=== PATIENT | female | born 1975 | race Caucasian/White ===

== ENCOUNTER 2016-12-24 21:21 | Emergency (ER) | payer OTHER ==
[~2016-12-24 21:21] MED LIST: ALBUTEROL0.09 MG/Ac INH; DUONEB3 ML NEB; FAMOTIDINE10 MG PO; LEVAQUIN750 MG PO; MEDDP PO; PROAIR HFA0.09 MG/A1 INH; SINGULAIR10 MG PO; [UNRECOGNIZED DRUG - OTHER]
[2016-12-24 23:02] LABS: BASOPHIL % 0.3 % (0-2); PLATELET COUNT 297 x10^3mcL (130-400)
[2016-12-24 23:04] LABS: RED CELL DISTRIBUTION WIDTH 16.3 % (11.5-14.5)
[2016-12-24 23:20] LABS: CALCIUM 8.1 mg/dL (8.5-10.1); CARBON DIOXIDE 30.2 mmol/L (21-32); CHLORIDE SERUM 99 mmol/L (98-107); CREATININE SERUM 0.7 mg/dL (0.6-1.0); GFR1 > 60 mL/min; GLUCOSE SERUM 90 mg/dL (74-106); POTASSIUM SERUM 3.5 mmol/L (3.5-5.1); SODIUM SERUM 135 mmol/L (136-145)
[2016-12-24 23:21] LABS: ALBUMIN 3.5 g/dL (3.4-5.0); ALKALINE PHOSPHATASE 100 U/L (46-116); ALT/SGPT 21 U/L (14-59); AMYLASE 28 U/L (25-115); AST/SGOT 18 U/L (15-37); BILIRUBIN TOTAL 0.4 mg/dL (0.20-1.00); LIPASE 96 IU/L (73-393); TOTAL PROTEIN, SERUM 7.2 g/dL (6.4-8.2)
[2016-12-25 00:54] VITALS: BP 146/78
== END 2016-12-25 00:54 | disposition home or self-care (01) ==
LOC: ED 21:21
PROVIDERS: Emergency Medicine
DX: R19.7 Diarrhea, unspecified (principal); R51 Headache; R11.0 Nausea; M79.605 Pain in left leg; J45.909 Unspecified asthma, uncomplicated; E66.9 Obesity, unspecified
CPT/HCPCS: Q0162

== ENCOUNTER 2018-01-09 05:14 | Emergency (ER) | payer OTHER ==
[2018-01-09 06:57] VITALS: BP 158/94
== END 2018-01-09 06:57 | disposition home or self-care (01) ==
LOC: ED 05:14
DX: J45.909 Unspecified asthma, uncomplicated (principal); E66.9 Obesity, unspecified; G47.30 Sleep apnea, unspecified; F17.210 Nicotine dependence, cigarettes, uncomplicated
CPT/HCPCS: J2930; J7620; Q0092

== ENCOUNTER 2018-01-24 07:58 | Inpatient (IN) | payer OTHER ==
[~2018-01-24] VITALS: Ht 172.7 cm; Wt 181.2 kg
[2018-01-24 08:03] VITALS: Ht 172.7 cm; Wt 181.2 kg
[2018-01-24] MEDS ORDERED: VENTOLIN H0.09 MG/A1 INH (11:01)
[2018-01-24 11:16] LABS: BASOPHIL % 0.5 % (0-2); PLATELET COUNT 309 x10^3mcL (130-400)
[2018-01-24 11:17] LABS: RED CELL DISTRIBUTION WIDTH 16.9 % (11.5-14.5)
[2018-01-24 11:27] LABS: CARBON DIOXIDE 34.5 mmol/L (21-32); CHLORIDE SERUM 100 mmol/L (98-107); CREATININE SERUM 0.6 mg/dL (0.6-1.0); GFR1 > 60 mL/min; GLUCOSE SERUM 115 mg/dL (74-106); POTASSIUM SERUM 3.7 mmol/L (3.5-5.1); SODIUM SERUM 136 mmol/L (136-145)
[2018-01-24 11:33] LABS: ALBUMIN 3.1 g/dL (3.4-5.0); ALKALINE PHOSPHATASE 109 U/L (46-116); ALT/SGPT 19 U/L (14-59); AST/SGOT 10 U/L (15-37); BILIRUBIN TOTAL 0.24 mg/dL (0.20-1.00); CHOLESTEROL 139 mg/dL (<200); HDL CHOLESTEROL 74 mg/dL (40-60); PHOSPHOROUS 3.8 mg/dL (2.5-4.9)
[2018-01-24 11:34] LABS: rbc morphology (normal/abnorm) ABNORMAL (NORMAL)
[2018-01-24 12:06] VITALS: BP 153/86
[2018-01-24 12:54] LABS: FREE T4 1.03 ng/dL (0.76-1.46); FREE THYROXINE INDEX 2.7 ug/dL (1.4-4.5)
[2018-01-24 12:59] LABS: T3 TOTAL 1.22 ng/mL
[2018-01-24 13:53] VITALS: BP 133/73
[2018-01-24 15:00] LABS: TOTAL IRON BINDING CAPACITY 348 ug/dL (250-450)
[2018-01-24 15:16] LABS: IRON 20 ug/dL (50-170)
[2018-01-24 15:57] LABS: RED BLOOD CELLS 4.51 M/mm3 (4.10-5.10)
[2018-01-24 18:03] VITALS: BP 144/77
[2018-01-24 20:38] VITALS: BP 134/66
[2018-01-25 01:56] LABS: UA SPECIFIC GRAVITY 1.025 (1.005-1.035); microscopic required? YES; urine erythrocyte 1+ (NEGATIVE)
[2018-01-25 02:23] LABS: AMPHETAMINE QUAL UR POSITIVE (NEG <=1000)
[2018-01-25 05:26] VITALS: BP 132/70
[2018-01-25 06:51] LABS: CALCIUM 8.6 mg/dL (8.5-10.1); CARBON DIOXIDE 29.6 mmol/L (21-32); CHLORIDE SERUM 102 mmol/L (98-107); CREATININE SERUM 0.6 mg/dL (0.6-1.0); GFR1 > 60 mL/min; GLUCOSE SERUM 145 mg/dL (74-106); MAGNESIUM 1.8 mg/dL (1.8-2.4); POTASSIUM SERUM 3.5 mmol/L (3.5-5.1); SODIUM SERUM 138 mmol/L (136-145)
[2018-01-25 07:28] LABS: BASOPHIL % 0 % (0-2); PLATELET COUNT 330 x10^3mcL (130-400); RED CELL DISTRIBUTION WIDTH 16.8 % (11.5-14.5)
[2018-01-25 08:43] VITALS: BP 115/73
[2018-01-25 13:11] VITALS: BP 122/70
[2018-01-25 16:14] VITALS: BP 115/66
[2018-01-25 20:36] VITALS: BP 109/64
[2018-01-26 05:47] VITALS: BP 130/67
[2018-01-26 06:41] LABS: BASOPHIL % 0 % (0-2); PLATELET COUNT 322 x10^3mcL (130-400); RED CELL DISTRIBUTION WIDTH 17.2 % (11.5-14.5)
[2018-01-26] MEDS ORDERED: FER300 PO (07:14)
[2018-01-26] MEDS ORDERED: BACDS PO (07:15)
[2018-01-26] MEDS ORDERED: C500500 MG PO (07:15)
[2018-01-26] MEDS ORDERED: MEDDP PO (07:16)
[2018-01-26] MEDS ORDERED: CULTURELLE1 EACH PO (07:16)
[2018-01-26] MEDS ORDERED: SINGULAIR10 MG PO (07:17)
[2018-01-26 09:47] VITALS: BP 123/74
[2018-01-26 13:19] VITALS: BP 123/74
[2018-01-26] MEDS ORDERED: IPRATROPIUM BROM3 M2 HHN (14:53)
[2018-01-26] MEDS ORDERED: VENTOLIN H0.09 MG/A1 INH (14:53)
== END 2018-01-26 16:00 | disposition home or self-care (01) | DRG 133 ==
LOC: ED 07:58 → DU 11:47 → MU 11:47 → DU 13:14 → MU 01-25 10:03
PROVIDERS: Emergency Medicine; Family Medicine
DX: J96.01 Acute respiratory failure with hypoxia (principal); N17.0 Acute kidney failure with tubular necrosis; E44.0 Moderate protein-calorie malnutrition; Z68.44 Body mass index [BMI] 60.0-69.9, adult; J45.902 Unspecified asthma with status asthmaticus; E66.01 Morbid (severe) obesity due to excess calories; Z83.3 Family history of diabetes mellitus; Z82.49 Family history of ischemic heart disease and other diseases of the circulatory system; F17.210 Nicotine dependence, cigarettes, uncomplicated; D64.9 Anemia, unspecified; N39.0 Urinary tract infection, site not specified; G47.33 Obstructive sleep apnea (adult) (pediatric); R73.03 Prediabetes; F19.10 Other psychoactive substance abuse, uncomplicated
CPT/HCPCS: 83880; 84439; J0696; J1644; J2920; J2930; J7030; J7512; J7613; J7620; J7626; J7644; Q0092

== ENCOUNTER 2018-07-27 06:23 | Emergency (ER) | payer OTHER ==
[~2018-07-27] VITALS: Ht 172.7 cm; Wt 181.0 kg
[~2018-07-27 06:23] MED LIST changes: +BACDS PO; +C500500 MG PO; +CULTURELLE1 EACH PO; +FER300 PO; +IPRATROPIUM BROM3 M2 HHN; +VENTOLIN H0.09 MG/A1 INH
[2018-07-27 06:29] VITALS: BP 136/88; Ht 172.7 cm; Wt 181.0 kg
== END 2018-07-27 07:07 | disposition home or self-care (01) ==
LOC: ED 06:23
DX: T63.301A Toxic effect of unspecified spider venom, accidental (unintentional), initial encounter (principal); L08.9 Local infection of the skin and subcutaneous tissue, unspecified; F17.210 Nicotine dependence, cigarettes, uncomplicated; J45.909 Unspecified asthma, uncomplicated; E66.01 Morbid (severe) obesity due to excess calories; Z68.44 Body mass index [BMI] 60.0-69.9, adult; Z71.6 Tobacco abuse counseling; Z98.890 Other specified postprocedural states; Y92.89 Other specified places as the place of occurrence of the external cause
CPT/HCPCS: 82962; 99406

== ENCOUNTER 2019-03-26 00:14 | Inpatient (IN) | payer OTHER ==
[~2019-03-26] VITALS: Ht 170.2 cm; Wt 136.1 kg
[2019-03-26 00:21] VITALS: Ht 170.2 cm; Wt 136.1 kg
--- NOTE | 2019-03-26 01:10 | NUR ---
PT PRESENTS TO THE ED TODAY WITH C/C OF BUG BITE TO RIGHT UPPER ARM SINCE SUNDAY. PT REPORTS THAT SHE THINKS A SPIDER BIT HER, HOWEVER DID NOT SEE WHAT ACTUALLY BIT HER. PT NOTICED INCREASED SWELLING AND WARMTH TO AREA YESTERDAY. 1 LARGE 2.5 CM IN DIAMETER FLUID FILLED BULLA NOTED AND A 1 CM IN DIAMETER BULLA NOTED. PT IS AWAKE AND ALERT, RESP E/U, NAD NOTED. AWAITING MSE.
--- NOTE | 2019-03-26 02:08 | NUR ---
PT MEDICATED PER EMAR, PT REMAINS ON FULL CM IN VIEW OF NURSE'S STATION.
[2019-03-26 02:25] LABS: BASOPHIL % 0.3 % (0-2); PLATELET COUNT 373 x10^3mcL (130-400)
[2019-03-26 02:29] LABS: RED CELL DISTRIBUTION WIDTH 16.3 % (11.5-14.5)
[2019-03-26 02:46] LABS: ALBUMIN 3.5 g/dL (3.4-5.0); ALKALINE PHOSPHATASE 108 U/L (46-116); ALT/SGPT 32 U/L (14-59); AST/SGOT 13 U/L (15-37); BILIRUBIN TOTAL 0.3 mg/dL (0.20-1.00); CALCIUM 8.9 mg/dL (8.5-10.1); CARBON DIOXIDE 29.8 mmol/L (21-32); CHLORIDE SERUM 106 mmol/L (98-107); CREATININE SERUM 0.7 mg/dL (0.6-1.0); GFR1 > 60 mL/min; GLUCOSE SERUM 107 mg/dL (74-106); POTASSIUM SERUM 3.8 mmol/L (3.5-5.1); SODIUM SERUM 143 mmol/L (136-145); TOTAL PROTEIN, SERUM 7.2 g/dL (6.4-8.2)
--- NOTE | 2019-03-26 02:50 | NUR ---
PT CONTINUOUSLY REMINDED TO NOT ITCH R ARM, PT CONTINUES TO ITCH. PT PROVIDED WITH PILLOWS AND COOL TOWEL FOR COMFORT MEASURES.
--- NOTE | 2019-03-26 04:12 | NUR ---
PT RESTING IN A POSITION OF COMFORT AT THIS TIME. AOX4, RESP EVEN AND UNLABORED, NO ACUTE DISTRESS NOTED.
--- NOTE | 2019-03-26 05:05 | NUR ---
PT RESTING WITH EYES CLOSED, RESP EVEN AND UNLABORED, NO ACUTE DISTRESS NOTED. PT ON FULL CM IN VIEW OF NURSE'S STATION.
--- NOTE | 2019-03-26 05:32 | NUR ---
PT REPORT CALLED TO COLLIN MCGRATH TO ASSUME PT CARE.
--- NOTE | 2019-03-26 05:40 | NUR ---
PT TRANSFERRED TO 234B BY [facility] BY MYSELF AND LYNN EMT. PT ON FULL CM FOR TRANSPORT. PT AOX4, RESP EVEN AND UNLABORED, NO ACUTE DISTRESS NOTED. PT ACCEPTED BY COLLIN MCGRATH TO ASSUME PT CARE. PT AMBULATED FROM [facility] TO BED WITHOUT INCIDENT.
--- NOTE | 2019-03-26 06:00 | NUR ---
RECEIVED REPORT FROM RAMILA MEYER. PT IS ALERT AND ORIENTED X4. PUPILS REACTIVE TO LIGHT. LETHARGIC. PT IS BREATHING E/U ON ROOM AIR. WHEEZING TO BILATERAL UPPER LOBES, DIMINISHED TO BILATERAL LOWER LOBES. S1 S2 HEART SOUNDS AUSCULTATED. PULSES MODERATE X4. SKIN IS WARM AND CONSISTENT WITH ETHNICITY. CAP REFILL <3 SECS X4. PERIPHERAL IV TO LAC PATENT, DRESSING CDI. ABD IS SOFT AND ROUNDED WITH ACTIVE BOWEL SOUNDS X4Q. VOIDS FREELY. NEEDS ASSISTANCE WITH AMBULATION. PT COMPLAINING OF PAIN TO RUE, 2 FLUID FILLED BLISTERS PRESENT WITH NON-ADHERENT DRESSING IN PLACE, CDI. PT ALSO HAS REDNESS TO BILATERAL ANKLES, PT STATED SHE SUSTAINED AFTER A FALL. ALL CARE ENDORESED TO AM NURSE.
--- NOTE | 2019-03-26 07:00 | NUR ---
RECEIVED PATIENT FROM MATERIAL HANDLING SUPERVISOR NURSE. PATIENT IS RESTING WITH BOTH EYES CLOSED, AROUSABLE. ON ROOM AIR, BREATHING EVEN AND UNLABORED. FALL PREC IN PLACE. DRESSING NOTED TO RIGHT ARM, CDI. IV NOTED TO LAC, SALINE LOCKED, NO S/S ERYTHEMA AT SITE. CALL LIGHT WITHIN EASY REACH. WILL CONTINUE PLAN OF CARE.
[2019-03-26 08:25] VITALS: BP 121/85
[2019-03-26 11:50] VITALS: BP 138/85
--- NOTE | 2019-03-26 12:20 | NUR ---
LARGE BLISTER POPPED ON RIGHT ARM AT THIS TIME. DRESSING REAPPLIED. ISLAND DRESSING AND RAYMOND WRAP REAPPLIED TO SITE. WILL CONTINUE TO MONITOR.
[2019-03-26 16:23] VITALS: BP 118/72
--- NOTE | 2019-03-26 18:48 | NUR ---
PATIENT RESTING EASY IN NO ACUTE DISTRESS. PATIENT CARE ENDORSED TO ORE DRYER NURSE.
[2019-03-26 19:40] VITALS: BP 133/64
--- NOTE | 2019-03-26 20:43 | NUR ---
RECEIVED PT IN BED AAOX4 LUNG SOUNDS WITH WHEEZING NO RESP DITRESS NOTED , PT'S ON TELE NUMBER 31 THAT SHOWS NSR , BS ACTIVE X4 ABD SOFT , SKIN WARM TO TOUCH ,, PT HAS TWO BLISTRES TO RIGHT UPPER ARM , DRESSING CHANGED , ONE BLISTER SKIN IS INTACT, 2ND FISH CONSERVATIONIST CLEAR FLUIDS NOTED, ,OPTIFORM CHANGED , WILL CON;T TO MONITOR PT .
--- NOTE | 2019-03-27 00:44 | NUR ---
PT C/O HEADACHE 05/17 NORCO GIVEN ORDERED , TELE NSR .
--- NOTE | 2019-03-27 03:30 | NUR ---
I HAVE REVIEWED THE DATA COLLECTION BY RIO (NAME):ABHISHEK LAZO ENTERED ON (DATE/TIME):03/26/19 I CONCUR WITH THE DATA AND ANY EXCEPTIONS OR COMMENTS ARE LISTED BELOW:
[2019-03-27 04:25] VITALS: BP 120/61
--- NOTE | 2019-03-27 06:17 | NUR ---
NO CHANGEES OF CONDITION NOTED , ALL DUE MEDS GIVEN NO REACTION NOTED, , HL INTACT FLUSHING WELL , CALL LIGHT WITHIN PT'S REACH , WILL CON'T TO MONITOR PT CLOSELY.
[2019-03-27 06:32] LABS: PLATELET COUNT 398 x10^3mcL (130-400)
--- NOTE | 2019-03-27 07:00 | NUR ---
RECIEVED PATIENT FROM CEMETERY WARDEN NURSE. PATIENT IS AWAKE, ALERT AND ORIENTED. TELE#31, SR, HR 77, DENIES CHEST PAIN. ON 1L NC, BREATHING EVEN AND UNLABORED, DENIES SOB. ISLAND DRESSING NOTED TO RIGHT ARM, CDI. IV SITE NOTED TO LAC, SALINE LOCKED, NO S/S ERYTHEMA AT SITE. CALL LIGHT WITHIN EASY REACH. WILL CONTINUE PLAN OF CARE.
[2019-03-27 07:01] LABS: ALKALINE PHOSPHATASE 98 U/L (46-116); ALT/SGPT 23 U/L (14-59); AST/SGOT 10 U/L (15-37); BILIRUBIN TOTAL 0.2 mg/dL (0.20-1.00); CALCIUM 8.6 mg/dL (8.5-10.1); CARBON DIOXIDE 26.4 mmol/L (21-32); CHLORIDE SERUM 103 mmol/L (98-107); CREATININE SERUM 0.6 mg/dL (0.6-1.0); GFR1 > 60 mL/min; GLUCOSE SERUM 142 mg/dL (74-106); POTASSIUM SERUM 4.2 mmol/L (3.5-5.1); SODIUM SERUM 138 mmol/L (136-145); TOTAL PROTEIN, SERUM 6.8 g/dL (6.4-8.2)
[2019-03-27 07:02] LABS: ALBUMIN 3.2 g/dL (3.4-5.0)
[2019-03-27 07:04] LABS: BASOPHIL % 0 % (0-2); RED CELL DISTRIBUTION WIDTH 16.2 % (11.5-14.5)
[2019-03-27 09:56] VITALS: BP 125/72
[2019-03-27 11:24] VITALS: BP 125/72
[2019-03-27 12:42] VITALS: BP 136/67
[2019-03-27] MEDS ORDERED: PREDNISONE20 MG PO (13:58)
--- NOTE | 2019-03-27 14:02 | NUR ---
PATIENT RESTING EASY. DENIES SOB ON ROOM AIR. O2 SAT 95% ON ROOM AIR. WILL CONTINUE TO MONITOR.
[2019-03-27] MEDS ORDERED: BACTRIM DS1 TAB PO (14:31)
--- NOTE | 2019-03-27 16:08 | NUR ---
PATIENT GIVEN ALL DC INSTRUCTIONS AT THIS TIME. ALL QUESTIONS ANSWERED. ALL NEW PRESCRIPTIONS PROVIDED TO PATIENT. TELE MONITOR REMOVED AND RETURNED TO QUILL SKINNER. PATIENT AWAITING RIDE AND TO NOTIFY STAFF WHEN RIDE IS HERE. INSTRUCTED TO GET DRESSED AND GATHER BELONGINGS. WILL CONTINUE TO MONITOR.
--- NOTE | 2019-03-27 17:32 | NUR ---
PATIENT DC'D HOME AT THIS TIME. AWAKE, ALERT AND ORIENTED. VSS. NO C/O PAIN OR DISCOMFORT. ALL PERSONAL BELONGINGS TAKEN WITH PATIENT.
== END 2019-03-27 17:32 | disposition home or self-care (01) | DRG 383 ==
LOC: ED 00:14 → DU 04:45
PROVIDERS: Emergency Medicine; Internal Medicine Pulmonary Disease; ADMIT Internal Medicine Pulmonary Disease
DX: L03.113 Cellulitis of right upper limb (principal); E66.01 Morbid (severe) obesity due to excess calories; J45.901 Unspecified asthma with (acute) exacerbation; F17.210 Nicotine dependence, cigarettes, uncomplicated; Z68.44 Body mass index [BMI] 60.0-69.9, adult
CPT/HCPCS: 99406; G0378; J1200; J1644; J1885; J2920; J2930; J3490; J7030; J7613; J7620; Q0092

== ENCOUNTER 2019-07-08 15:10 | Emergency (ER) | payer OTHER ==
[~2019-07-08] VITALS: Ht 172.7 cm; Wt 191.4 kg
[~2019-07-08 15:10] MED LIST changes: +BACTRIM DS1 TAB PO; +PREDNISONE20 MG PO
[2019-07-08 15:13] VITALS: Ht 172.7 cm; Wt 191.4 kg
[2019-07-08 19:06] VITALS: BP 125/86
== END 2019-07-08 19:06 | disposition home or self-care (01) ==
LOC: ED 15:10
DX: J45.909 Unspecified asthma, uncomplicated (principal); Z98.890 Other specified postprocedural states; E66.9 Obesity, unspecified
CPT/HCPCS: J7512; J7613; J7620

== ENCOUNTER 2019-08-14 12:07 | Observation (INO) | payer OTHER ==
[~2019-08-14] VITALS: Ht 172.7 cm; Wt 191.0 kg
[2019-08-14 12:22] VITALS: Ht 172.7 cm; Wt 191.0 kg
--- NOTE | 2019-08-14 12:50 | NUR ---
PT BIB FOR INCR ONSET OF SOB TODAY. PT REPORTS SHE IS STRESSED BECAUSE OF HER SON'S PERSONAL ISSUES. PT SPOKE IN SHORT SENTENCES. WHEEZE IS HEARD THROUGHOUT ALL URIOSTEGUI. PT IS MORBIDLY OBESE AND PLACED TO POSITION OF COMFORT ON GURNEY. HX OF ASTHMA
--- NOTE | 2019-08-14 13:22 | NUR ---
BREATHIGN TX STILL IN PLACE
--- NOTE | 2019-08-14 13:58 | NUR ---
PT SPEAKS IN CLEARER SENTENCES. REMAINS SITTING WITH HOB UP 45 DEGREES
--- NOTE | 2019-08-14 14:11 | NUR ---
PT MEDICATED WITH 0.3MG OF EPI IM TO L LATERAL THIGHT. + AUDIBLE WHEEZING NOTED. PT ABLE TO SPEAK FULL CLEAR SENTENCES. + CM . CONTINUE TO MONITOR.
--- NOTE | 2019-08-14 15:35 | NUR ---
PT STILL HAS WHEEZE HEARD IN ALL FIELD ALTHOUGH THERE IS IMPROVEMENT WITH AERATION. RR STILL APPROX 22-24 PER MINUTE. PT REPORTS FEELING BETTER THAN WHEN SHE INITIALLY ARRIVED TO ED
[2019-08-14 15:51] LABS: BASOPHIL % 0.3 % (0-2); PLATELET COUNT 304 x10^3mcL (130-400)
[2019-08-14 15:56] LABS: CALCIUM 8.3 mg/dL (8.5-10.1); CARBON DIOXIDE 30.2 mmol/L (21-32); CHLORIDE SERUM 105 mmol/L (98-107); CREATININE SERUM 0.6 mg/dL (0.6-1.0); GFR1 > 60 mL/min; GLUCOSE SERUM 115 mg/dL (74-106); POTASSIUM SERUM 3.7 mmol/L (3.5-5.1); SODIUM SERUM 141 mmol/L (136-145)
[2019-08-14 15:58] VITALS: BP 132/81
[2019-08-14 16:02] LABS: ALBUMIN 3.7 g/dL (3.4-5.0); ALKALINE PHOSPHATASE 105 U/L (46-116); ALT/SGPT 20 U/L (14-59); AST/SGOT 10 U/L (15-37); BILIRUBIN TOTAL 0.44 mg/dL (0.20-1.00); TOTAL PROTEIN, SERUM 7.5 g/dL (6.4-8.2)
[2019-08-14 16:07] LABS: RED CELL DISTRIBUTION WIDTH 17.2 % (11.5-14.5)
--- NOTE | 2019-08-14 16:08 | NUR ---
REPORT GIVEN TO JESU
--- NOTE | 2019-08-14 17:00 | NUR ---
RECEIVED PT FROM ET ON A GURNEY. REPORT GIVEN BY MARANDA MCGRATH. PT IS AAOX4. RESP EVEN AND UNLABORED. NO DISTRESS NOTED. LUNG SOUNDS DIMINISHED, SHALLOW WITH EXPIRATORY WHEEZE. ON 02 N/C AT 2LPM. NO COUGH NOTED. TELE [address] READING NSR. PT HAS BLE TRACE EDEMA WITH BLE REDNESS, CAP REFILL <3 SEC, PERIPHERAL PULSES PALPABLE. DENIES NUMBNESS AND TINGLING. ABDOMEN SOFT, NON TENDER, BOWEL SOUNDS ACTIVE X4, PT HAS C/O DIARRHEA X1. IV CATH TO RAC WITH FLUIDS RUNNING. SITE WNL. PT DENIES PAIN AND DISCOMFORT. CALL LIGHT WITHIN REACH. PT ORIENTED TO ROOM AND CALL LIGHT. RECEIVED ORDER FROM DR. MACIAS, REGULAR DIET AND FULL CODE. ORDER NOTED AND CARRIED OUT. PT MADE AWARE.
[2019-08-14 17:05] VITALS: BP 155/92
--- NOTE | 2019-08-14 18:09 | NUR ---
SCHEDULED MEDS GIVEN AND TOLERATED WELL. RESP EVEN AND UNLABORED. PT DENIES PAIN. CALL LIGHT WITHIN REACH.
[2019-08-14 18:17] VITALS: BP 150/92
--- NOTE | 2019-08-14 18:38 | NUR ---
RECEIVED PT FROM ET ON A GURNEY. REPORT GIVEN BY MARANDA MCGRATH. PT IS AAOX4. RESP EVEN AND UNLABORED. NO DISTRESS NOTED. LUNG SOUNDS DIMINISHED, SHALLOW WITH EXPIRATORY WHEEZE. ON 02 N/C AT 2LPM. NO COUGH NOTED. TELE [address] READING NSR. PT HAS BLE TRACE EDEMA WITH BLE REDNESS, CAP REFILL <3 SEC, PERIPHERAL PULSES PALPABLE. DENIES NUMBNESS AND TINGLING. ABDOMEN SOFT, NON TENDER, BOWEL SOUNDS ACTIVE X4, PT HAS C/O DIARRHEA X1. IV CATH TO RAC WITH FLUIDS RUNNING. SITE WNL. PT DENIES PAIN AND DISCOMFORT. CALL LIGHT WITHIN REACH. PT ORIENTED TO ROOM AND CALL LIGHT.
--- NOTE | 2019-08-14 18:47 | NUR ---
PT IS AAOX4. RESP EVEN, SHALLOW AND UNLABORED. ON O2 N/C AT 2LPM. NO COUGH NOTED. PT DEINES PAIN OR DISCOMFORT AT THIS TIME. TELE [address] READING NSR. IVF RUNNING TO RAC. SITE WNL. BED IN LOW POSTION. CALL LIGHT WITHIN REACH. WILL ENDORSE ALL CARE TO NOC RAMILA.
--- NOTE | 2019-08-14 19:20 | NUR ---
RECEIVED REPORT FROM YAQUELIN MCGRATH. PT IS AAOX4 AND DENIES HEADACHE OR DIZZINESS AT THIS TIME. PT IS ON TELE #15, [place] WITH HR 110. PT DENIES CHEST PAIN OR PRESSURE AT THIS TIME. PT PULSES ARE PALPABLE AND CAP REFILL <3 SEC. PT HAS TRACE EDEMA TO BLE. PT HAS EXPIRATORY WHEEZES UPON AUSCULTATION. PT BREATHING IS EVEN AND UNLABORED. PT ON 2L O2 N/C. PT DENIES SOB OR RESPIRATORY DISTRESS AT THIS TIME. PT IS MORBIDLY OBESE. PT ABD SOFT AND ROUND. PT BOWEL SOUNDS ACTIVE X4. PT LBM 08/13/19-DIARRHEA. PT VOIDS FRELLY. PT IS INCONTINENT AT TIMES, WHEN SHE COUGHS. PT IS STRICT I/O. PT HAS GENERALIZED WEAKNESS AND IS AMBULATORY WITH ASSIST. PT IV IS PATENT AND WNL. PT CALM AND COOPERATIVE WITH NURSING CARE. CALL LIGHT WITHIN REACH. BED IN LOWEST POSITION. SIDE RAILS X2 UP. WILL CONTINUE TO MONITOR.
--- NOTE | 2019-08-14 21:30 | NUR ---
PT REFUSED CPAP. STATES SHE DOES NOT USE IT DURING ASTHMA EXACERBATIONS.
[2019-08-14 21:31] VITALS: BP 151/87
--- NOTE | 2019-08-15 01:00 | NUR ---
PT SLEEPING. BREATHING IS EVEN AND UNLABORED. NO ACUTE DISTRESS NOTED AT THIS TIME. CALL LIGHT WITHIN REACH. BED IN LOWEST POSITION. SIDE RAILS X2 UP. WILL CONTINUE TO MONITOR.
--- NOTE | 2019-08-15 03:43 | NUR ---
PT REQUESTED A BREATHING TX. CALLED RT AND MADE AWARE. RT SAID SHE WOULD BE UP TO SEE HER SHORTLY.
--- NOTE | 2019-08-15 03:48 | NUR ---
PT SLEPT THROUGHOUT THE NIGHT. PT ONLY WOKE UP TO USE RESTROOM 2X. NO ACUTE DISTRESS NOTED THROUGHOUT THE SHIFT. PT COMPLIED WITH NURSING CARE THROUGHOUT THE SHIFT. COMFORT AND SAFETY MEASURES MAINTAINED DURING THE SHIFT. ALL NEEDS AND CONCERNS ADDRESSED. WILL CONTINUE TO MONITOR. WILL ENDORSE CARE TO DAY SHIFT NURSE.
--- NOTE | 2019-08-15 04:04 | NUR ---
RT SAID THAT PT IS STILL REFUSING CPAP MACHINE. O2 WAS INCREASED TO 3LPM N/C AND PT O2 SAT IS 94%. WILL CONTINUE TO MONITOR.
--- NOTE | 2019-08-15 06:14 | NUR ---
PT BP IS 190/[address] MACIAS AND MADE AWARE. ORDERS FOR KLONIDINE AND AMLODIPINE WERE GIVEN. WILL AWAIT ORDERS. WILL CARRY OUT ORDERS PER DEC.
[2019-08-15 06:16] VITALS: BP 190/101
[2019-08-15 06:36] LABS: ALKALINE PHOSPHATASE 95 U/L (46-116); ALT/SGPT 18 U/L (14-59); AST/SGOT 5 U/L (15-37); BILIRUBIN TOTAL 0.28 mg/dL (0.20-1.00); CALCIUM 8.5 mg/dL (8.5-10.1); CARBON DIOXIDE 29.6 mmol/L (21-32); CHLORIDE SERUM 105 mmol/L (98-107); CREATININE SERUM 0.5 mg/dL (0.6-1.0); GFR1 > 60 mL/min; GLUCOSE SERUM 150 mg/dL (74-106); POTASSIUM SERUM 4.4 mmol/L (3.5-5.1); SODIUM SERUM 141 mmol/L (136-145); TOTAL PROTEIN, SERUM 7.1 g/dL (6.4-8.2)
--- NOTE | 2019-08-15 06:44 | NUR ---
PER DEC, ADMINISTERED CLONIDINE PO FOR BP 190/101 WITH HR 91. WILL REASSESS BP. WILL CONTINUE TO MONITOR.
[2019-08-15 06:49] LABS: ALBUMIN 3.2 g/dL (3.4-5.0)
[2019-08-15 06:51] LABS: BASOPHIL % 0.1 % (0-2); PLATELET COUNT 299 x10^3mcL (130-400)
[2019-08-15 07:35] LABS: RED CELL DISTRIBUTION WIDTH 16.9 % (11.5-14.5)
--- NOTE | 2019-08-15 07:50 | NUR ---
RECEIVED PATIENT RESTING IN BED, NO ACUTE DISTRESS NOTED. PATIENT C/O PAIN TO RLE 01/15, REPOSITIONED PATIENT FOR COMFORT. EDEMA & ERYTHEMA NOTED TO BLE, ELEVATED PATIENT EXTREMITIES. POSITIVE HOMANS SIGN TO RLE. PATIENT DENIES SOB, EXPIRATORY WHEEZES NOTED BILATERALLY, SLIGHTLY LABORED BREATHING NOTED. PATIENT ON 3L NC. PATIENT DENIES LOOSES STOOLS. IV TO RAC SALINE LOCK, CDI& PATENT, NO S/S OF INFILTRATION. CALL LIGHT WITHIN REACH, BED IN LOW POSITION, WILL CONTINUE TO MONITOR.
--- NOTE | 2019-08-15 08:31 | NUR ---
RESPIRATORY THERAPIST AT BEDSIDE FOR BREATHING TREATMENT.
[2019-08-15 09:04] VITALS: BP 121/71
--- NOTE | 2019-08-15 11:20 | NUR ---
PATIENT WAS SATTING AT 98-100% ON 3L NC, PATIENT STATES SHE DOES NOT USE OXYGEN AT HOME, RT TITRATED OXYGEN DOWN TO ROOM AIR. WILL CONTINUE TO MONITOR FOR CHANGES.
--- NOTE | 2019-08-15 11:24 | NUR ---
DR. MACIAS MADE AWARE, PATIENT WAS POSITIVE FOR HOMANS SIGN TO RIGHT LOWER EXTR., DR MACIAS GAVE TELEPHONE ORDER READBACK FOR US VENOUS: RLE, WILL CARRY OUT ORDERS AT THIS TIME.
--- NOTE | 2019-08-15 12:03 | NUR ---
CABLE ARMORER OPERATOR AT BEDSIDE.
[2019-08-15 13:15] VITALS: BP 111/57
[2019-08-15] MEDS ORDERED: AZITHROMYCIN1 GM PO (13:21)
[2019-08-15] MEDS ORDERED: ROBL PO (13:23)
[2019-08-15 17:38] VITALS: BP 120/59
[2019-08-15 18:11] VITALS: BP 120/59
--- NOTE | 2019-08-15 18:55 | NUR ---
PATIENT IS TO BE DISCHARGED HOME. PATIENT RECEIVED COPY OF DISCHARGE INSTRUCTIONS, PATIENT UNDERSTANDS AND AGREES WITH DISCHARGE INSTRUCTIONS & PLAN OF CARE, INCLUDING MEDICATION & FOLLOW UP CARE WITH PCP. ALL QUESTIONS AND CONCERNS ADDRESSED. IV TO RAC REMOVED, CATH INTACT. ARMBANDS & TELE MONITOR REMOVED, AND RETURNED TO PIPELINE INSPECTOR.
== END 2019-08-15 19:00 | disposition home or self-care (01) | DRG 141 ==
LOC: ED 12:07 → DU 15:23
PROVIDERS: Specialist; ADMIT Internal Medicine
DX: J45.901 Unspecified asthma with (acute) exacerbation (principal); E66.01 Morbid (severe) obesity due to excess calories; J45.902 Unspecified asthma with status asthmaticus; R09.02 Hypoxemia; F41.0 Panic disorder [episodic paroxysmal anxiety]; G47.30 Sleep apnea, unspecified; F17.210 Nicotine dependence, cigarettes, uncomplicated
CPT/HCPCS: 87804; 90658; G0378; J0171; J0456; J1644; J2920; J2930; J3475; J7030; J7040; J7613; J7626; J7644; Q0092

== ENCOUNTER 2019-11-04 22:25 | Inpatient (IN) | payer OTHER ==
[~2019-11-04] VITALS: Ht 172.7 cm; Wt 183.3 kg
[~2019-11-04 22:25] MED LIST changes: +AZITHROMYCIN1 GM PO; +ROBL PO
[2019-11-04 22:32] VITALS: Ht 172.7 cm; Wt 183.3 kg
[2019-11-04 23:48] LABS: BASOPHIL % 0.1 % (0-2); PLATELET COUNT 331 x10^3mcL (130-400)
[2019-11-04 23:56] LABS: RED CELL DISTRIBUTION WIDTH 16.6 % (11.5-14.5)
[2019-11-05] VITALS (7 sets, daily range): BP systolic 124–148; BP diastolic 72–94
[2019-11-05 00:08] LABS: CALCIUM 9.1 mg/dL (8.5-10.1); CARBON DIOXIDE 29.6 mmol/L (21-32); CHLORIDE SERUM 98 mmol/L (98-107); CREATININE SERUM 0.7 mg/dL (0.6-1.0); GFR1 > 60 mL/min; GLUCOSE SERUM 114 mg/dL (74-106); POTASSIUM SERUM 3.7 mmol/L (3.5-5.1); SODIUM SERUM 134 mmol/L (136-145)
[2019-11-05 00:10] LABS: ALKALINE PHOSPHATASE 104 U/L (46-116); ALT/SGPT 19 U/L (14-59); AST/SGOT 12 U/L (15-37); BILIRUBIN TOTAL 1.1 mg/dL (0.20-1.00); TOTAL PROTEIN, SERUM 7.4 g/dL (6.4-8.2)
[2019-11-05 00:15] LABS: ALBUMIN 3.2 g/dL (3.4-5.0)
[2019-11-05 17:22] LABS: microscopic required? YES; urine erythrocyte 3+ (NEGATIVE)
[2019-11-06 04:29] VITALS: BP 128/79
[2019-11-06 06:20] LABS: PLATELET COUNT 355 x10^3mcL (130-400)
[2019-11-06 06:24] LABS: BASOPHIL % 0 % (0-2); CARBON DIOXIDE 25.2 mmol/L (21-32); CHLORIDE SERUM 106 mmol/L (98-107); CREATININE SERUM 0.6 mg/dL (0.6-1.0); GFR1 > 60 mL/min; GLUCOSE SERUM 173 mg/dL (74-106); MAGNESIUM 2.1 mg/dL (1.8-2.4); POTASSIUM SERUM 4.3 mmol/L (3.5-5.1); RED CELL DISTRIBUTION WIDTH 16.8 % (11.5-14.5); SODIUM SERUM 140 mmol/L (136-145)
[2019-11-06 09:18] VITALS: BP 111/71
[2019-11-06 12:29] VITALS: BP 109/63
[2019-11-06 16:11] VITALS: BP 136/70
[2019-11-06 20:45] VITALS: BP 129/82
[2019-11-07 05:28] VITALS: BP 125/77
[2019-11-07 07:44] LABS: CALCIUM 8.6 mg/dL (8.5-10.1); CHLORIDE SERUM 101 mmol/L (98-107); CREATININE SERUM 0.5 mg/dL (0.6-1.0); GFR1 > 60 mL/min; GLUCOSE SERUM 131 mg/dL (74-106); MAGNESIUM 2.1 mg/dL (1.8-2.4); POTASSIUM SERUM 4.3 mmol/L (3.5-5.1); SODIUM SERUM 136 mmol/L (136-145)
[2019-11-07 08:45] VITALS: BP 118/75
[2019-11-07 11:51] VITALS: BP 126/82
== END 2019-11-07 17:47 | disposition home or self-care (01) | DRG 720 ==
LOC: ED 22:25 → DU 11-05 01:00
PROVIDERS: Emergency Medicine; ADMIT Internal Medicine Pulmonary Disease
DX: A41.9 Sepsis, unspecified organism (principal); J96.01 Acute respiratory failure with hypoxia; J44.0 Chronic obstructive pulmonary disease with (acute) lower respiratory infection; J44.1 Chronic obstructive pulmonary disease with (acute) exacerbation; J18.9 Pneumonia, unspecified organism; J45.901 Unspecified asthma with (acute) exacerbation; Z68.45 Body mass index [BMI] 70 or greater, adult; G47.33 Obstructive sleep apnea (adult) (pediatric); F17.210 Nicotine dependence, cigarettes, uncomplicated
CPT/HCPCS: 36600; 87804; 90658; 90732; 97116-GP; 97530-GP; G0378; J0456; J0696; J1644; J1956; J2920; J2930; J3480; J7030; J7050; J7060; J7613; J7620; J7626; J7644; Q0092

== ENCOUNTER 2020-08-20 09:38 | Emergency (ER) | payer OTHER, SELFPAY ==
[~2020-08-20] VITALS: Ht 172.7 cm; Wt 195.0 kg
[2020-08-20 09:40] VITALS: Ht 172.7 cm; Wt 195.0 kg
[2020-08-20 12:26] VITALS: BP 132/84
== END 2020-08-20 12:26 | disposition home or self-care (01) ==
LOC: ED 09:38
DX: B34.9 Viral infection, unspecified (principal); J45.909 Unspecified asthma, uncomplicated; Z20.828 Contact with and (suspected) exposure to other viral communicable diseases
CPT/HCPCS: 87107; 87804; U0003